=== PATIENT | male | born 1990 | race Caucasian/White ===

== ENCOUNTER 2021-04-25 09:45 | Emergency (ER) | payer MEDICAID ==
[~2021-04-25] VITALS: Ht 172.7 cm; Wt 72.6 kg
[2021-04-25 10:04] VITALS: BP_SYST 114
[2021-04-25] MEDS ORDERED: ONDANSETRON HCL 4 MG/2 ML VIAL IVP ONE (10:30)
[2021-04-25] MEDS ORDERED: MORPHINE 4 MG INJ. 4 MG/ML VIAL IVP ONE (10:30)
[2021-04-25 10:36] LABS: BILIRUBIN,URINE NEGATIVE (NEGATIVE); CLARITY/URINE CLEAR (CLEAR); COLOR,URINE YELLOW (YELLOW); GLUCOSE,URINE NEGATIVE (NEGATIVE); KETONES,URINE NEGATIVE (NEGATIVE); LEUKOCYTE ESTERASE ,URINE NEGATIVE (NEGATIVE); NITRITE, URINE NEGATIVE (NEGATIVE); PROTEIN URINE TRACE (NEGATIVE); UROBILINOGEN,URINE 0.2 (0.2-1.0)
[2021-04-25 10:40] LABS: BASOPHILS % (AUTO) 0.7 % (0.0-2.0); EOSINOPHILS # (AUTO) 0.1 K/uL (0.0-0.4); EOSINOPHILS % (AUTO) 1.5 % (0.0-4.0); HEMATOCRIT 38.7 % (36-54); HEMOGLOBIN 12.9 g/dL (14.0-18.0); LYMPHOCYTES # (AUTO) 1.2 K/uL (1.0-5.5); LYMPHOCYTES % (AUTO) 18.1 % (20.5-51.5); MEAN CORPUSCULAR HEMOGLOBIN 27 pg (27-31); MEAN CORPUSCULAR HGB CONC 33 % (32-36); MEAN CORPUSCULAR VOLUME 81 fL (79.0-98.0); MONOCYTES # (AUTO) 0.4 K/uL (0.0-1.0); MONOCYTES % (AUTO) 5.9 % (1.7-9.3); NEUTROPHILS % (AUTO) 73.8 % (40.0-70.0); PLATELET COUNT (AUTO) 237 K/uL (130-430); RED BLOOD CELL COUNT(AUTO) 4.78 MIL/uL (4.2-6.2); RED CELL DISTRIBUTION WIDTH 14.6 % (9.0-15.0); WHITE BLOOD COUNT (AUTO) 6.7 K/uL (4.8-10.8)
[2021-04-25 10:41] LABS: BLOOD, URINE TRACE (NEGATIVE)
[2021-04-25 10:49] LABS: CALCIUM 8.2 mg/dL (8.4-11.0); CREATININE 0.92 mg/dL (0.55-1.30); POTASSIUM 4.5 mmol/L (3.5-5.1)
[2021-04-25 10:55] LABS: ALBUMIN 3.5 g/dL (3.4-4.8); TOTAL BILIRUBIN 0.1 mg/dL (0.0-1.0)
[2021-04-25 11:00] LABS: BACTERIA,URINE None Seen /HPF (None Seen); WBC,URINE NONE SEEN /HPF (0-3)
[2021-04-25] MEDS ORDERED: PANT20TA2 PO (13:14)
[2021-04-25] MEDS ORDERED: ONDA-8 TL (13:14)
[2021-04-25 14:20] VITALS: BP_SYST 93
== END 2021-04-25 14:20 | disposition home or self-care (01) ==
LOC: SED 09:45
DX: K29.70 Gastritis, unspecified, without bleeding (principal)
CPT/HCPCS: 36415; 74176; 76376; 80053; 81000; 83690; 85025; 96374; 96375; 99284; J2270; J2405

== ENCOUNTER 2023-09-04 11:19 | Emergency (ER) | payer MEDICAID ==
[~2023-09-04] VITALS: Ht 177.8 cm; Wt 70.8 kg
[~2023-09-04 11:19] MED LIST: ONDA-8 TL; PANT20TA2 PO
[2023-09-04 11:57] VITALS: BP_SYST 140; PULSE 127; RESP 22; TEMP 99.7; O2SAT 98
[2023-09-04] MEDS ORDERED: ONDANSETRON HCL 4 MG/2 ML VIAL IVP ONE (12:15)
[2023-09-04 12:25] LABS: BASOPHILS # (AUTO) 0.1 K/uL (0.0-0.2); BASOPHILS % (AUTO) 0.4 % (0.0-2.0); EOSINOPHILS % (AUTO) 0.1 % (0.0-4.0); HEMATOCRIT 43.8 % (36-54); HEMOGLOBIN 14.9 g/dL (14.0-18.0); LYMPHOCYTES # (AUTO) 0.2 K/uL (1.0-5.5); LYMPHOCYTES % (AUTO) 1.8 % (20.5-51.5); MEAN CORPUSCULAR HEMOGLOBIN 29 pg (27-31); MEAN CORPUSCULAR HGB CONC 34 % (32-36); MEAN CORPUSCULAR VOLUME 85 fL (79.0-98.0); MONOCYTES # (AUTO) 0.5 K/uL (0.0-1.0); MONOCYTES % (AUTO) 3.9 % (1.7-9.3); NEUTROPHILS # (AUTO) 12.3 K/uL (1.8-7.7); NEUTROPHILS % (AUTO) 93.8 % (40.0-70.0); PLATELET COUNT (AUTO) 163 K/uL (130-430); RED BLOOD CELL COUNT(AUTO) 5.16 MIL/uL (4.2-6.2); RED CELL DISTRIBUTION WIDTH 13.2 % (9.0-15.0); WHITE BLOOD COUNT (AUTO) 13.1 K/uL (4.8-10.8)
[2023-09-04] MEDS ORDERED: KETOROLAC TROMETHAMINE 30 MG VIAL IVP ONE (12:30)
[2023-09-04] MEDS ORDERED: NACL 0.9% 1,000 ML IV ONE (12:30)
[2023-09-04] MEDS ORDERED: ACETAMINOPHEN 500 MG TABLET PO ONE (12:30)
[2023-09-04 12:40] LABS: CALCIUM 9.3 mg/dL (8.4-11.0); CREATININE 0.98 mg/dL (0.55-1.30); POTASSIUM 3.3 mmol/L (3.5-5.1)
[2023-09-04 12:44] LABS: ALBUMIN 3.9 g/dL (3.4-4.8); BILIRUBIN,DIRECT 0.2 mg/dL (0.0-0.3); TOTAL BILIRUBIN 0.9 mg/dL (0.0-1.0); TOTAL PROTEIN, SERUM 7.8 g/dL (6.4-8.3)
[2023-09-04 12:45] LABS: INR 1.1 (0.80-1.20); PROTHROMBIN TIME 11.2 SECS (9.5-12.5)
[2023-09-04 12:50] LABS: COVID19 ANTIGEN SOFIA FIA NEGATIVE (NEGATIVE); INFLUENZA TYPE A Negative (NEGATIVE); INFLUENZA TYPE B NEGATIVE (NEGATIVE)
[2023-09-04] MEDS ORDERED: ANT30 PO (14:11)
[2023-09-04] MEDS ORDERED: ONDA-8 TL (14:11)
[2023-09-04] MEDS ORDERED: PEPTAB PO (14:11)
[2023-09-04] MEDS ORDERED: DICY-14 PO (14:11)
[2023-09-04] MEDS ORDERED: MAG HYDROX/AL HYDROX/SIMETH 30 ML, LIDOCAINE VISCOUS 2% 15ML (PO) 15 ML, DICYCLOMINE HC... PO ONE ×3 (14:15)
[2023-09-04 15:22] VITALS: BP_SYST 92; PULSE 89; RESP 18; TEMP 97.6; O2SAT 96
== END 2023-09-04 15:25 | disposition home or self-care (01) ==
LOC: SED 11:19
DX: A08.4 Viral intestinal infection, unspecified (principal); R10.33 Periumbilical pain; R11.10 Vomiting, unspecified; R50.9 Fever, unspecified; Z79.899 Other long term (current) drug therapy; Z20.822 Contact with and (suspected) exposure to COVID-19
CPT/HCPCS: 99285; 74176; 96374; 96361; 96375; 87426; 80076; 80048; 83690; 85025; 85610; 85730; 87040; 36415; 76376; 83605; 87804 ×2; J2001; J1885; J2405; J7030

== ENCOUNTER 2023-09-06 08:41 | Emergency (ER) | payer MEDICAID ==
[~2023-09-06] VITALS: Ht 170.2 cm; Wt 79.4 kg
[2023-09-06 08:41] VITALS: BP_SYST 128; PULSE 81; RESP 19; TEMP 98; O2SAT 98
[~2023-09-06 08:41] MED LIST changes: +ANT30 PO; +DICY-14 PO; +PEPTAB PO
[2023-09-06] MEDS ORDERED: ONDANSETRON HCL 4 MG/2 ML VIAL IVP ONE (09:00)
[2023-09-06] MEDS ORDERED: KETOROLAC TROMETHAMINE 15 MG VIAL IVP ONE (09:00)
[2023-09-06] MEDS ORDERED: DICYCLOMINE HCL 10 MG/5 ML SOLUTION PO ONE (09:00)
[2023-09-06] MEDS ORDERED: NACL 0.9% 1,000 ML IV ONE (09:00)
[2023-09-06 09:21] LABS: BASOPHILS % (AUTO) 0.4 % (0.0-2.0); EOSINOPHILS % (AUTO) 0.2 % (0.0-4.0); HEMATOCRIT 42.6 % (36-54); HEMOGLOBIN 14.5 g/dL (14.0-18.0); LYMPHOCYTES # (AUTO) 0.7 K/uL (1.0-5.5); LYMPHOCYTES % (AUTO) 5.8 % (20.5-51.5); MEAN CORPUSCULAR HEMOGLOBIN 29 pg (27-31); MEAN CORPUSCULAR HGB CONC 34 % (32-36); MEAN CORPUSCULAR VOLUME 85 fL (79.0-98.0); MONOCYTES % (AUTO) 8.5 % (1.7-9.3); NEUTROPHILS # (AUTO) 9.8 K/uL (1.8-7.7); NEUTROPHILS % (AUTO) 85.1 % (40.0-70.0); PLATELET COUNT (AUTO) 182 K/uL (130-430); RED BLOOD CELL COUNT(AUTO) 5.02 MIL/uL (4.2-6.2); RED CELL DISTRIBUTION WIDTH 13.1 % (9.0-15.0); WHITE BLOOD COUNT (AUTO) 11.6 K/uL (4.8-10.8)
[2023-09-06 09:34] LABS: ERYTHROCYTE SEDIMENTATION RATE 25 MM/HR (0-15)
[2023-09-06 09:50] LABS: ALBUMIN 3.6 g/dL (3.4-4.8); CALCIUM 9.7 mg/dL (8.4-11.0); CREATININE 0.82 mg/dL (0.55-1.30); POTASSIUM 3.5 mmol/L (3.5-5.1); TOTAL BILIRUBIN 0.6 mg/dL (0.0-1.0); TOTAL PROTEIN, SERUM 7.6 g/dL (6.4-8.3)
[2023-09-06 10:27] LABS: BILIRUBIN,URINE NEGATIVE (NEGATIVE); CLARITY/URINE CLEAR (CLEAR); COLOR,URINE YELLOW (YELLOW); GLUCOSE,URINE NEGATIVE (NEGATIVE); KETONES,URINE NEGATIVE (NEGATIVE); LEUKOCYTE ESTERASE ,URINE NEGATIVE (NEGATIVE); NITRITE, URINE NEGATIVE (NEGATIVE); PROTEIN URINE NEGATIVE (NEGATIVE); UROBILINOGEN,URINE 0.2 (0.2-1.0)
[2023-09-06 10:33] LABS: BLOOD, URINE TRACE (NEGATIVE)
[2023-09-06 10:34] LABS: BACTERIA,URINE RARE /HPF (None Seen); MUCUS,URINE 1+ /LPF (None Seen); RBC,URINE 0-3 /HPF (0-3); WBC,URINE 0-3 /HPF (0-3)
[2023-09-06] MEDS ORDERED: IBUP-1969 PO (11:53)
[2023-09-06] MEDS ORDERED: ACET-2634 PO (11:53)
[2023-09-06] MEDS ORDERED: MORPHINE 4 MG INJ. 4 MG/ML VIAL IVP ONE (12:00)
[2023-09-06 12:39] VITALS: BP_SYST 116; PULSE 68; RESP 20; TEMP 97.9; O2SAT 98
== END 2023-09-06 12:38 | disposition home or self-care (01) ==
LOC: SED 08:41
DX: A08.4 Viral intestinal infection, unspecified (principal); R11.2 Nausea with vomiting, unspecified; R10.30 Lower abdominal pain, unspecified; Z79.899 Other long term (current) drug therapy
CPT/HCPCS: 99284; 96374; 96375; 96361; 80053; 81000; 81001; 83690; 85025; 85651; 36415; 83605; 82397; 81015; J1885; J2405; J2270; J7030

== ENCOUNTER 2024-05-20 21:39 | Emergency (ER) | payer SELFPAY ==
[~2024-05-20] VITALS: Ht 170.2 cm; Wt 81.6 kg
[~2024-05-20 21:39] MED LIST changes: +ACET-2634 PO; +IBUP-1969 PO
[2024-05-20 21:48] VITALS: BP_SYST 132; PULSE 73; RESP 20; TEMP 98.8; O2SAT 96
[2024-05-20] MEDS: ONDANSETRON HCL 4 MG/2 ML VIAL IVP ONE (22:54)
[2024-05-20] MEDS: KETOROLAC TROMETHAMINE 30 MG VIAL IVP ONE (22:56)
[2024-05-20] MEDS: NACL 0.9% 1,000 ML IV ONE (22:56)
[2024-05-20 23:16] LABS: EOSINOPHILS # (AUTO) 0.2 K/uL (0.0-0.4); HEMOGLOBIN 14.9 g/dL (14.0-18.0); NEUTROPHILS # (AUTO) 5.6 K/uL (1.8-7.7); RED BLOOD CELL COUNT(AUTO) 4.96 MIL/uL (4.2-6.2); WHITE BLOOD COUNT (AUTO) 7.9 K/uL (4.8-10.8)
[2024-05-20 23:24] LABS: BASOPHILS % (AUTO) 0.5 % (0.0-2.0); EOSINOPHILS % (AUTO) 2.2 % (0.0-4.0); HEMATOCRIT 41.7 % (36-54); LYMPHOCYTES # (AUTO) 1.4 K/uL (1.0-5.5); LYMPHOCYTES % (AUTO) 17.3 % (20.5-51.5); MEAN CORPUSCULAR HEMOGLOBIN 30 pg (27-31); MEAN CORPUSCULAR HGB CONC 36 % (32-36); MEAN CORPUSCULAR VOLUME 84 fL (79.0-98.0); MONOCYTES # (AUTO) 0.7 K/uL (0.0-1.0); MONOCYTES % (AUTO) 8.9 % (1.7-9.3); NEUTROPHILS % (AUTO) 71.1 % (40.0-70.0); PLATELET COUNT (AUTO) 207 K/uL (130-430); RED CELL DISTRIBUTION WIDTH 13.2 % (9.0-15.0)
[2024-05-20 23:44] LABS: ALBUMIN 3.9 g/dL (3.4-4.8); BILIRUBIN,DIRECT 0.1 mg/dL (0.0-0.3); CALCIUM 8.9 mg/dL (8.4-11.0); CREATININE 0.91 mg/dL (0.55-1.30); POTASSIUM 3.4 mmol/L (3.5-5.1); TOTAL BILIRUBIN 0.5 mg/dL (0.0-1.0); TOTAL PROTEIN, SERUM 7.7 g/dL (6.4-8.3)
[2024-05-21] MEDS ORDERED: DICY-14 PO (00:20)
[2024-05-21] MEDS ORDERED: ONDA-8 TL (00:20)
[2024-05-21] MEDS ORDERED: KETO10TA2 PO (00:20)
[2024-05-21] MEDS: HYDROcodone/ACETAMIN 5-325 MG TAB (NORCO/ VICODIN) PO ONE (00:26)
[2024-05-21] MEDS ORDERED: DICYCLOMINE HCL 10 MG CAPSULE PO ONE (00:30)
[2024-05-21 00:40] VITALS: BP_SYST 132; PULSE 73; RESP 20; TEMP 98.8; O2SAT 96
== END 2024-05-21 00:40 | disposition home or self-care (01) ==
LOC: SED 21:39
DX: R10.32 Left lower quadrant pain (principal); R11.10 Vomiting, unspecified; F17.200 Nicotine dependence, unspecified, uncomplicated; Z79.899 Other long term (current) drug therapy; Z79.2 Long term (current) use of antibiotics
CPT/HCPCS: 99285; 74176; 96374; 96361; 96375; 80076; 80048; 83690; 85025; 36415; J1885; J2405; J7030